=== PATIENT | female | born 1995 | race Caucasian/White ===

== ENCOUNTER 2018-08-21 23:33 | Emergency (ER) | payer SELFPAY ==
[2018-08-22] MEDS: IBUPROFEN 200 MG TAB PO (01:27)
== END 2018-08-22 03:07 | disposition home or self-care (01) ==
LOC: FTE 23:33
DX: S13.4XXA Sprain of ligaments of cervical spine, initial encounter (principal); V49.40XA Driver injured in collision with unspecified motor vehicles in traffic accident, initial encounter
CPT/HCPCS: 72040; 99283-25